=== PATIENT | female | born 1965 | race African-American/Black ===

== ENCOUNTER 2019-08-10 17:25 | Emergency (ER) | payer OTHER ==
[~2019-08-10] VITALS: Ht 165.1 cm; Wt 67.0 kg
[2019-08-10 17:45] VITALS: BP 122/74
== END 2019-08-10 20:40 | disposition home or self-care (01) ==
LOC: ER 17:25
DX: S92.351A Displaced fracture of fifth metatarsal bone, right foot, initial encounter for closed fracture (principal); X50.1XXA Overexertion from prolonged static or awkward postures, initial encounter; Y93.89 Activity, other specified; Y92.9 Unspecified place or not applicable; Z90.49 Acquired absence of other specified parts of digestive tract
CPT/HCPCS: 29515; 73630; 99283